=== PATIENT | male | born 1965 | race Caucasian/White ===

== ENCOUNTER 2021-03-28 08:18 | Emergency (ER) | payer SELFPAY ==
[~2021-03-28] VITALS: Ht 182.9 cm; Wt 127.9 kg
== END 2021-03-28 09:45 | disposition home or self-care (01) ==
LOC: ED 08:18
DX: S93.601A Unspecified sprain of right foot, initial encounter (principal); W22.8XXA Striking against or struck by other objects, initial encounter
CPT/HCPCS: 73630; 99283-25